=== PATIENT | female | born 1990 | race Caucasian/White ===

== ENCOUNTER 2018-03-31 16:03 | Emergency (ER) | payer OTHER ==
[~2018-03-31] VITALS: Ht 165.1 cm; Wt 79.4 kg
[2018-03-31 16:32] VITALS: BP 117/87; Ht 165.1 cm; Wt 79.4 kg
== END 2018-03-31 19:03 | disposition left against medical advice (07) ==
LOC: ED 16:03
DX: S59.911A Unspecified injury of right forearm, initial encounter (principal); X50.9XXA Other and unspecified overexertion or strenuous movements or postures, initial encounter; Y93.89 Activity, other specified; Y92.89 Other specified places as the place of occurrence of the external cause; Y99.8 Other external cause status